=== PATIENT | female | born 1975 | race Caucasian/White ===

== ENCOUNTER 2017-11-10 22:52 | Emergency (ER) | payer OTHER ==
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
[2017-11-11] MEDS ORDERED: Nitrofurantoin Monohydrate/Macrocrystalline 100 MG Cap PO ONE (01:04)
[2017-11-11] MEDS ORDERED: Lisinopril 5 MG Tab PO ONE (01:25)
[2017-11-11 01:34] LABS: CHLORIDE,CL 100 mmol/L (98-107); SODIUM,NA 139 mmol/L (136-145)
[2017-11-11] MEDS ORDERED: Ziprasidone Mesylate 20 MG Vial IM ONE (02:27)
[2017-11-11] MEDS ORDERED: Ziprasidone Mesylate 20 MG Vial ONE (02:28)
== END 2017-11-11 02:50 ==
LOC: MW.ED 22:52
DX: F29 Unspecified psychosis not due to a substance or known physiological condition (principal); I10 Essential (primary) hypertension; E03.9 Hypothyroidism, unspecified; Z79.899 Other long term (current) drug therapy
CPT/HCPCS: 36415; 80053; 80305; 81001; 81025; 84443; 85025; 96372; 99285; A9270; G0480; J3486; 99284

== ENCOUNTER 2018-03-10 10:35 | Day surgery (SDC) | payer MEDICAID ==
[~2018-03-10 10:35] MED LIST: Lactated Ringers 1,000 ML IV SCH; Lidocaine 2% 5 ML SDV ONE; Midazolam 1 MG/ML 2 ML SDV ONE; Propofol 200 MG/20 ML SDV ONE; Sodium Chloride 0.9% 10 ML Syringe FLUSH PRN; Sodium Chloride 0.9% 2.5 ML Syringe FLUSH PRN; fentaNYL 100 MCG/2 ML SDV IVPUSH PRN; fentaNYL 100 MCG/2 ML SDV ONE
--- NOTE | 2018-03-10 11:02 | PCM.PREANE ---
Preanesthetic Assessment - Anesthesia/Transfusion/Family Hx Anesthesia History: Prior Anesthesia Without Reaction Family History of Anesthesia Reaction: No Transfusion History: Prior Transfusion Without Reaction Intubation History: Unknown - Review of Systems General: No Symptoms Pulmonary: No Symptoms Cardiovascular: No Symptoms Gastrointestinal: No Symptoms Neurological: No Symptoms Other: Reports: None - Physical Assessment NPO Status Date: 03/10/18 NPO Status Time: 00:00 Height: 5 ft 7 in Weight: 210 lb ASA Class: 3 Mental Status: Alert & Oriented x3 Airway Class: Mallampati = 2 Dentition: Reports: Normal Dentition Thyro-Mental Finger Breadths: 3 Mouth Opening Finger Breadths: 3 ROM/Head Extension: Full Lungs: Clear to Auscultation, Normal Respiratory Effort Cardiovascular: Regular Rate, Regular Rhythm - Allergies Allergies/Adverse Reactions: Allergies Allergy/AdvReac Type Severity Reaction Status Date / Time No Known Allergies Allergy Verified 03/08/18 10:52 - Blood Blood Available: No Product(s) Available: None - Anesthesia Plan Free Text/Narrative:: MAC Pre-Op Medication Ordered: None - Acknowledgements Anesthesia Type Planned: MAC Pt an Appropriate Candidate for the Planned Anesthesia: Yes Alternatives and Risks of Anesthesia Discussed w Pt/Guardian: Yes Pt/Guardian Understands and Agrees with Anesthesia Plan: Yes PreAnesthesia Questionnaire HEENT History: Reports: None Cardiovascular History: Reports: Hypertension (last took lisinopril 7/4 AM) Respiratory History: Reports: None Gastrointestinal History: Reports: None Genitourinary History: Reports: None ADJUNCT FACULTY History: Reports: None Musculoskeletal History: Reports: None Neurological History: Reports: Migraines (approx 1/month) Psychiatric History: Reports: Anxiety, Depression, Psych Hospitalization(s) ( most recently november of this year) Other Psychiatric History: Paranoid Thoughts Endocrine/Metabolic History: Reports: Hypothyroidism (partial thyroidectomy), Obesity/BMI 30+ Hematologic History: Reports: Blood Transfusion(s) Immunologic History: Reports: None Oncologic (Cancer) History: Reports: None Dermatologic History: Reports: None - Infectious Disease History Infectious Disease History: Reports: None - Past Surgical History Female Surgical History: Reports: D&C, Other (See Below) Other Female Surgeries/Procedures: Laparoscopy Endocrine Surgical History: Reports: Thyroidectomy (partial) - SUBSTANCE USE Smoking Status *Q: Never Smoker Recreational Drug Use History: No - HOME MEDS Home Medications: Home Meds DULoxetine [Cymbalta] 60 mg PO QAM 06/29/14 [History] Levothyroxine [Synthroid] 88 mcg PO ACBRK 06/29/14 [History] Lisinopril 5 mg PO QPM 11/11/17 [History] Benztropine Mesylate 0.5 mg PO BEDTIME 03/08/18 [History] DULoxetine [Cymbalta] 30 mg PO BEDTIME 03/08/18 [History] LORazepam 1 mg PO TID PRN 03/08/18 [History] Lurasidone HCl [Latuda] 80 mg PO QPM 03/08/18 [History] - CURRENT (IN HOUSE) MEDS Current Meds: Current Medications Fentanyl (Sublimaze) 50 mcg IVPUSH Q5M PRN PRN Reason: Pain (severe 7-10) Stop: 03/11/18 09:57 Lactated Ringer's (Ringers, Lactated) 1,000 mls @ 125 mls/hr IV ASDIRECTED AZAEL Sodium Chloride (Saline Flush) 10 ml FLUSH ASDIRECTED PRN PRN Reason: Keep Vein Open Sodium Chloride (Saline Flush) 2.5 ml FLUSH ASDIRECTED PRN PRN Reason: Keep Vein Open Discontinued Medications Fentanyl (Sublimaze) Confirm Administered Dose 100 mcg .ROUTE .STK-MED ONE Stop: 03/10/18 09:47 Lidocaine (Xylocaine-Mpf 2%) Confirm Administered Dose 5 ml .ROUTE .STK-MED ONE Stop: 03/10/18 09:47 Midazolam HCl (Versed 1 Mg/Ml) Confirm Administered Dose 2 mg .ROUTE .STK-MED ONE Stop: 03/10/18 09:47 Propofol (Diprivan 20 Ml) Confirm Administered Dose 400 mg .ROUTE .STK-MED ONE Stop: 03/10/18 09:47 Propofol (Diprivan 20 Ml) Confirm Administered Dose 200 mg .ROUTE .STK-MED ONE Stop: 03/10/18 09:49
[2018-03-10] MEDS ORDERED: Lidocaine 1% 20 ML MDV ONE (11:08)
[2018-03-10] MEDS ORDERED: Glycopyrrolate 0.2 MG/ML SDV ONE (11:20)
--- NOTE | 2018-03-10 11:50 | PCM.POSTAN ---
POST ANESTHESIA ASSESSMENT - MENTAL STATUS Mental Status: Alert, Oriented - RESPIRATORY Respiratory Status: Respiratory Rate WNL, Airway Patent, O2 Saturation Stable - CARDIOVASCULAR CV Status: Pulse Rate WNL, Blood Pressure Stable - GASTROINTESTINAL GI Status: No Symptoms - POST OP HYDRATION Hydration Status: Adequate & Stable
--- NOTE | 2018-03-10 12:59 | PCM48HPAN ---
Post Anesthesia Note - EVALUATION WITHIN 48HRS OF ANESTHETIC Vital Signs in Normal Range: Yes Patient Participated in Evaluation: Yes Respiratory Function Stable: Yes Airway Patent: Yes Cardiovascular Function Stable: Yes Hydration Status Stable: Yes Pain Control Satisfactory: Yes Nausea and Vomiting Control Satisfactory: Yes Mental Status Recovered: Yes Resp Rate: 13 - COMMENTS/OBSERVATIONS Free Text/Narrative:: Pt stable with no pain or nausea
--- NOTE | 2018-03-11 11:20 | OR ---
SURGEON: Guerrero Chamorro MD DATE OF PROCEDURE: PREOPERATIVE DIAGNOSES: 1. Atypical Squamous Cells of Undetermined Significance. 2. Abnormal Pap smear with high grade, unsatisfactory colposcopy. POSTOPERATIVE DIAGNOSES: 1. Atypical Squamous Cells of Undetermined Significance. 2. Abnormal Pap smear with high grade, unsatisfactory colposcopy. OPERATION PERFORMED: Cone biopsy. DIRECTOR ORACLE: NEELA Keenan ANESTHESIA: Mask by Mr. Merrill Schofield. ESTIMATED BLOOD LOSS: Less than 10 mL. COMPLICATIONS: None. FINDING: ASCUS. INDICATION FOR SURGERY: [place] referred to the admit note. PROCEDURE IN DETAIL: The patient was brought to the OR, properly identified. After taking time-out, the patient was prepped and draped in sterile fashion as usual. Straight catheter was used to empty the bladder and weighted speculum placed in vagina. Two Allis clamps applied to the cervix at 3 and 9 o'clock for stabilization and clamping of the descending branch of the uterine artery. Then the cervix was infiltrated with 1% xylocaine. Then using the electric excision, cone biopsy of the cervix is excised and removed and labeled at 12 o'clock and then the base of the cone was cauterized with the electrocautery and after removing the clamp, inspection of the operative field shows no oozing, no bleeding. The procedure was ended. Instrument, sponge count was correct. The patient tolerated the procedure well, went to recovery room in stable general condition. SALVADOR / ALEX /[id number]
== END 2018-03-10 13:55 ==
LOC: MW.SDS 10:35
PROVIDERS: ATTEND Obstetrics & Gynecology
DX: N87.0 Mild cervical dysplasia (principal); E03.9 Hypothyroidism, unspecified; I10 Essential (primary) hypertension; F41.9 Anxiety disorder, unspecified; F32.9 Major depressive disorder, single episode, unspecified; Z79.899 Other long term (current) drug therapy
CPT/HCPCS: 57522; 81025; J2250; J3010; J7120; J2704